=== PATIENT | female | born 1965 | race Caucasian/White ===

== ENCOUNTER 2018-06-01 09:54 | Inpatient (IN) | payer BC ==
[2018-05-19 11:26] LABS: BASOPHILS % (AUTO) 0.6 % (0-1); EOSINOPHILS # (AUTO) 0.2 X10'3 (0-0.9); EOSINOPHILS % (AUTO) 3.2 % (0-6); LYMPHOCYTES # (AUTO) 1.7 X10'3 (1.1-4.8); LYMPHOCYTES % (AUTO) 26.5 % (21-51); MEAN CORPUSCULAR HEMOGLOBIN 29.3 PG (27.0-31.0); MEAN CORPUSCULAR HGB CONC 33.4 % (33.0-36.5); MEAN CORPUSCULAR VOLUME 87.7 FL (78-98); MEAN PLATELET VOLUME 8.1 FL (7.4-10.4); MONOCYTES # (AUTO) 0.4 X10'3 (0-0.9); MONOCYTES % (AUTO) 6.2 % (2-12); NEUTROPHILS # (AUTO) 4.1 X10'3 (1.8-7.7); NEUTROPHILS % (AUTO) 63.5 % (42-75); PRE OP HEMOGLOBIN 15.1 g/dL (12.0-16.0); PRE OP PLATELET COUNT 277 X10'3 (140-440); RED BLOOD COUNT 5.14 X10'6 (4.20-5.60); RED CELL DISTRIBUTION WIDTH 13.2 % (11.5-14.5)
[2018-05-19 11:30] LABS: CLARITY,URINE CLEAR (Clear); COLOR,URINE YELLOW (Yellow); GLUCOSE, URINE NEGATIVE (Neg); KETONES,URINE NEGATIVE (Neg); LEUKOCYTE ESTERASE ,URINE NEGATIVE (Neg); NITRITES, URINE NEGATIVE (Neg); OCCULT BLOOD,URINE SMALL (Neg); PROTEIN,URINE NEGATIVE (Neg); UROBILINOGEN,URINE 0.2 E.U/dL (0.2-1.0)
[2018-05-19 11:39] LABS: UA COLLECTION TYPE CLN CATCH MIDSTREAM
[2018-05-19 11:41] LABS: BACTERIA,URINE FEW /HPF (Neg); SQUAMOUS EPITHELIAL CELL,UR FEW /LPF (FEW); WBC,URINE 0-4 /HPF (0-4)
[2018-05-19 11:41] LABS: ALANINE AMINOTRANSFERASE 28 U/L (12-78); ALBUMIN 3.8 G/DL (3.4-5.0); ALKALINE PHOSPHATASE 115 IU/L (46-116); ANION GAP 7 (8-16); ASPARTATE AMINO TRANSFERASE 15 U/L (10-37); BILIRUBIN,TOTAL 0.6 MG/DL (0.1-1.0); BLOOD UREA NITROGEN 19 MG/DL (7-18); BUN/CREATININE RATIO 20.4 (6.6-38.0); CALCIUM 9.3 MG/DL (8.5-10.1); CHLORIDE 104 MMOL/L (99-107); CREATININE 0.93 MG/DL (0.40-0.90); GLUCOSE 96 MG/DL (70-104); POTASSIUM 3.9 MMOL/L (3.5-5.1); SODIUM 138 MMOL/L (135-145); TOTAL PROTEIN 7.8 G/DL (6.4-8.2); eGFR 64 ML/MIN
[~2018-06-01] VITALS: Ht 167.6 cm; Wt 109.9 kg
[~2018-06-01 09:54] MED LIST: AFRIN; BUDE0.5A11 NEB; FLUT16SP2 BOTHNARES; IBUP1CAP3 PO; LORA10TA7 PO
[2018-06-04] VITALS (18 sets, daily range): BP systolic 92–131; BP diastolic 52–89
[2018-06-04] MEDS ORDERED: tranexamic acid inj. 1,000 MG in normal saline 100ml IV soln 100 ML IV ONE ×4 (05:30→19:50)
[2018-06-04] MEDS ORDERED: famotidine 20mg tablet PO ONE (05:30)
[2018-06-04] MEDS ORDERED: VANCOMYCIN INJ 1000 MG in NORMAL SALINE 250ml IV.SOLN IV ONE (05:30)
[2018-06-04] MEDS ORDERED: cefazolin/dext.iso 2gm/50ml 50 ML IV ONE (05:30)
[2018-06-04] MEDS ORDERED: [UNRECOGNIZED DRUG - OTHER] INH (09:29)
[2018-06-04] MEDS: ringers solution, lacted 1,000 ML IV SCH ×2 (09:42→09:50)
[2018-06-04] MEDS ORDERED: proCHLORperazine 10 MG/2 ml inj IV PRN (10:35)
[2018-06-04] MEDS ORDERED: ringers solution, lacted 1,000 ML IV SCH (10:35)
[2018-06-04] MEDS ORDERED: morphine 4 MG/ML inj SYRINge IV PRN ×2 (10:35)
[2018-06-04] MEDS ORDERED: meperidine/PF 25mg/ml syringe IV PRN ×3 (10:35)
[2018-06-04] MEDS ORDERED: ondansetron/PF 4mg/2ml inj IV PRN ×3 (10:35→16:15)
[2018-06-04] MEDS ORDERED: ketorolac trometh. 30mg/ml inj. ONE (11:56)
[2018-06-04] MEDS ORDERED: ROPIVAcaine 0.5% (5mg/ml) 30ml vial ONE ×2 (11:56→13:20)
[2018-06-04] MEDS ORDERED: tetracaine 1% (10mg/ml) pres. free inj. ONE (13:21)
[2018-06-04] MEDS ORDERED: ROPIVACAINE IJ SCH (13:30)
[2018-06-04] MEDS ORDERED: MIDAZolam 1mg/ml 10ml vial ONE (13:31)
[2018-06-04] MEDS ORDERED: morphine /PF 1mg/ml 10ml inj. ONE (13:31)
[2018-06-04] MEDS ORDERED: fentaNYL/PF 50MCG/1 ML 2ML syringe ONE (13:31)
[2018-06-04] MEDS ORDERED: BUPIVAcaine/dex-water/PF 7.5 mg/ml 2ml ampul ONE (13:32)
[2018-06-04] MEDS ORDERED: propofol inj 20 ML IV ONE ×3 (13:53)
[2018-06-04] MEDS ORDERED: diphenhydrAMINE 50 mg/ml inj ONE (14:08)
[2018-06-04] MEDS ORDERED: ROPIVACAINE HCL/PF PAIN PUMP 400 ML IJ ONE (14:20)
[2018-06-04] MEDS ORDERED: diphenhydrAMINE 50 mg/ml inj IV PRN (14:25)
[2018-06-04] MEDS ORDERED: magnesium hydroxide 30ml (MOM) UD suspension PO PRN (16:15)
[2018-06-04] MEDS ORDERED: oxyCODONE IR 5mg (immed. release) tablet PO PRN ×2 (16:15)
[2018-06-04] MEDS ORDERED: IBUPROFEN PO PRN (16:15)
[2018-06-04] MEDS ORDERED: PSEUDOEPHEDRINE HCL PO PRN (16:15)
[2018-06-04] MEDS ORDERED: bisacodyl 10mg suppository rectal RC PRN (16:15)
[2018-06-04] MEDS ORDERED: fluticasone nasal spray 16GM bottle NS PRN (16:15)
[2018-06-04] MEDS ORDERED: diphenhydrAMINE 25mg capsule PO PRN ×2 (16:15)
[2018-06-04] MEDS ORDERED: acetaminophen 325mg tablet PO PRN (16:15)
[2018-06-04] MEDS ORDERED: HYDROmorphone 1 mg/ml syringe IV PRN ×2 (16:15)
[2018-06-04] MEDS: potassium cl 20mEq in 1/2 NS 1,000 ML IV SCH ×2 (19:33→23:57)
[2018-06-04] MEDS: acetaminophen 325mg tablet PO SCH (19:45)
[2018-06-04] MEDS: loratadine 10mg tablet PO SCH (19:45)
[2018-06-04] MEDS: ketorolac tromethamine 15mg/ml inj. IV SCH (19:45)
[2018-06-04] MEDS ORDERED: vancomycin/NS 1 GM ADD-VANTAGE 250 ML IV SCH (20:00)
[2018-06-04] MEDS: gabapentin 300mg capsule PO SCH (20:02)
[2018-06-04] MEDS ORDERED: sennosides 8.6mg tablet PO SCH (21:00)
[2018-06-04] MEDS: ceFAZolin 1GM/D5W- ADD-VANTAGE 50 ML IV SCH (23:55)
[2018-06-05 01:15] VITALS: BP 95/62
[2018-06-05] MEDS: acetaminophen 325mg tablet PO SCH ×2 (02:11→10:43)
[2018-06-05] MEDS: ketorolac tromethamine 15mg/ml inj. IV SCH ×2 (02:11→10:42)
[2018-06-05] MEDS: potassium cl 20mEq in 1/2 NS 1,000 ML IV SCH (05:11)
[2018-06-05 05:15] VITALS: BP 93/56
[2018-06-05] MEDS: loratadine 10mg tablet PO SCH (08:00)
[2018-06-05] MEDS ORDERED: aspirin 325mg tablet PO SCH (08:30)
[2018-06-05 09:15] VITALS: BP 100/68
[2018-06-05 09:39] LABS: BASOPHILS % (AUTO) 0.1 % (0-1); EOSINOPHILS # (AUTO) 0.2 X10'3 (0-0.9); EOSINOPHILS % (AUTO) 1.8 % (0-6); HEMATOCRIT 40.2 % (35.0-45.0); HEMOGLOBIN 13.6 g/dl (12.0-16.0); LYMPHOCYTES % (AUTO) 8.4 % (21-51); MEAN CORPUSCULAR HEMOGLOBIN 29.8 PG (27.0-31.0); MEAN CORPUSCULAR HGB CONC 33.9 % (33.0-36.5); MEAN CORPUSCULAR VOLUME 88.1 FL (78-98); MEAN PLATELET VOLUME 8.1 FL (7.4-10.4); MONOCYTES # (AUTO) 0.4 X10'3 (0-0.9); MONOCYTES % (AUTO) 3.5 % (2-12); NEUTROPHILS # (AUTO) 10.6 X10'3 (1.8-7.7); NEUTROPHILS % (AUTO) 86.2 % (42-75); PLATELET COUNT 212 X10'3 (140-440); RED BLOOD COUNT 4.56 X10'6 (4.20-5.60); WHITE BLOOD COUNT 12.3 X10'3 (4.5-11.0)
[2018-06-05 09:47] LABS: ANION GAP 9 (8-16); CHLORIDE 106 MMOL/L (99-107); SODIUM 139 MMOL/L (135-145)
[2018-06-05] MEDS ORDERED: ceFAZolin 1GM/D5W- ADD-VANTAGE 50 ML IV SCH (10:45)
[2018-06-05] MEDS: gabapentin 300mg capsule PO SCH (10:45)
[2018-06-05] MEDS: ceFAZolin 1GM/D5W- ADD-VANTAGE 50 ML IV SCH (10:57)
[2018-06-05 13:15] VITALS: BP 147/62
[2018-06-05] MEDS ORDERED: celeCOXIB 100mg capsule PO SCH (20:00)
[2018-06-06] MEDS ORDERED: acetaminophen 325mg tablet PO PRN (16:15)
== END 2018-06-05 15:03 | disposition home or self-care (01) | DRG 470 ==
LOC: EDSTATUS 15:15 → PAS IN 06-04 08:35 → EDSTATUS 06-04 13:00 → ORTHO 4S 06-04 17:40
PROVIDERS: ADMIT Orthopaedic Surgery; ATTEND Orthopaedic Surgery
PROC: 8E0Y0CZ Robotic Assisted Procedure of Lower Extremity, Open Approach (ICD-10-PCS; 2018-06-04)
PROC: 3E0T3BZ Introduction of Anesthetic Agent into Peripheral Nerves and Plexi, Percutaneous Approach (ICD-10-PCS; 2018-06-04)
PROC: 0SRC0J9 Replacement of Right Knee Joint with Synthetic Substitute, Cemented, Open Approach (ICD-10-PCS; principal; 2018-06-04 13:23)
DX: M17.11 Unilateral primary osteoarthritis, right knee (principal); M25.561 Pain in right knee; J45.909 Unspecified asthma, uncomplicated; Z88.2 Allergy status to sulfonamides; Z88.8 Allergy status to other drugs, medicaments and biological substances; Z88.6 Allergy status to analgesic agent; Z83.3 Family history of diabetes mellitus; Z82.49 Family history of ischemic heart disease and other diseases of the circulatory system; Z80.9 Family history of malignant neoplasm, unspecified; Z82.3 Family history of stroke
CPT/HCPCS: 36415; 80051; 80053; 81001; 85025; 87070; 97110; 97116; 97161; 97530; A7000; C1713; C1758; C1776; G0378; J0690; J1200; J1885; J2250; J2274; J2704; J2795; J3010; J3370; J3490; J7030; J7120